=== PATIENT | male | born 2000 | race Caucasian/White ===

== ENCOUNTER 2018-06-07 22:46 | Emergency (ER) | payer OTHER ==
[2018-06-07 22:52] VITALS: BP 136/88
[2018-06-07] MEDS ORDERED: IPRATROPIUM/ALBUTEROL 3 ML DEYVIAL ONE (23:05)
[2018-06-07] MEDS ORDERED: IPRATROPIUM/ALBUTEROL 3 ML DEYVIAL IH ONE ×2 (23:08→23:41)
[2018-06-07] MEDS ORDERED: DEXAMETHASONE 4 MG TAB PO ONE (23:08)
--- NOTE | 2018-06-07 23:10 | EDPHY ---
H & P Smoking Status: Current every day smoker Time Seen by Provider: 06/07/18 23:04 HPI/ROS: CHIEF COMPLAINT: Shortness of breath HISTORY OF PRESENT ILLNESS: Patient is a 18-year-old male here with chief complaint of shortness of breath and fevers and chills starting this afternoon. States he has prior history of asthma but has run out of his albuterol inhaler. He also reports body aches and chills starting today. Denies sore throat. He has had a productive cough. Denies sick contacts. REVIEW OF SYSTEMS: Constitutional: + fever, no chills. Eyes: No discharge. ENT: No sore throat. Cardiovascular: No chest pain, no palpitations. Respiratory: + cough, no shortness of breath. Gastrointestinal: No abdominal pain, no vomiting. Genitourinary: No hematuria. Musculoskeletal: No back pain. Skin: No rashes. Neurological: No headache. (Farzad Fuller) Physical Exam: General Appearance: Alert and no distress. Eyes: Pupils equal and round no injection. Respiratory: Chest is nontender, diffuse wheezing without retractions Cardiac: regular rate and rhythm. Gastrointestinal: Abdomen is soft and nontender, no masses, bowel sounds normal. Musculoskeletal: Neck is supple and nontender. Extremities have full range of motion and are nontender. Skin: No rashes or lesions. (Farzad Fuller) Constitutional: Initial Vital Signs Temperature (C) 37.2 C 06/07/18 22:49 Heart Rate 116 H 06/07/18 22:49 Respiratory Rate 18 06/07/18 22:49 Blood Pressure 136/88 H 06/07/18 22:49 O2 Sat (%) 94 06/07/18 22:49 O2 Delivery Mode Room Air Allergies/Adverse Reactions: Penicillins Allergy (Verified 06/07/18 22:48) Home Medications: Medication Instructions Recorded Albuterol Hfa Anes Only [Proair 2 puffs IH QID #1 mdi 06/07/18 Hfa Icu (*)] Oseltamivir Phosphate [Tamiflu 75 75 mg PO BID 5 Days #10 cap 06/07/18 mg (*)] predniSONE 60 mg PO DAILY 3 Days #9 tab 06/07/18 Medical Decision Making - Diagnostics Imaging Results: Imaging Impressions Chest X-Ray 06/07/18 23:09 IMPRESSION: Normal chest x-ray. ED Course/Re-evaluation: 18-year-old male here with wheezing and subjective fever. Chest x-ray reveals no focal infiltrate this is probably influenza as he does have body aches and cough. This is likely an asthma exacerbation caused by the upper respiratory infection. He was started on Tamiflu, prednisone and albuterol. He feels improved after 2 duo nebs and tender Decadron. (Farzad Fuller) PHYSICIAN DOCUMENTATION: The patient was evaluated and managed by the Physician Spring Assembler Supervisor. My co- signature indicates that I have reviewed this chart and I agree with the findings and plan of care as documented. I am the secondary supervising physician. (Manju Grimm) Differential Diagnosis: ACS, pulmonary embolism, asthma, pneumonia (Farzad Fuller) - Data Points Medications Given: Discontinued Medications Albuterol Sulfate (Proventil Inh Prepack) 1 mdi TAKEHOME EDNOW ONE Stop: 06/07/18 23:45 Last Admin: 06/07/18 23:58 Dose: 1 mdi Albuterol/Ipratropium (Duoneb) 3 ml IH EDNOW ONE Stop: 06/07/18 23:09 Last Admin: 06/07/18 23:14 Dose: 3 ml Albuterol/Ipratropium (Duoneb) 3 ml IH EDNOW ONE Stop: 06/07/18 23:42 Last Admin: 06/07/18 23:44 Dose: 3 ml Dexamethasone (Decadron) 10 mg PO EDNOW ONE Stop: 06/07/18 23:09 Last Admin: 06/07/18 23:14 Dose: 10 mg Departure - Departure Disposition: Home, Routine, Self-Care Clinical Impression: Asthma exacerbation, Viral upper respiratory infection Condition: Good Instructions: Albuterol (By breathing), Asthma (ED) Referrals: NONE *PRIMARY CARE P,. [Primary Care Provider] - As per Instructions [facility] [Clinic] - As per Instructions Prescriptions: Albuterol Hfa Anes Only [Proair Hfa Icu (*)] 2 puffs IH QID #1 mdi Oseltamivir Phosphate [Tamiflu 75 mg (*)] 75 mg PO BID 5 Days #10 cap predniSONE 60 mg PO DAILY 3 Days #9 tab
[2018-06-07] MEDS ORDERED: ALBUTEROL INH PREPACK MDI TAKEHOME ONE (23:44)
== END 2018-06-08 00:10 | disposition home or self-care (01) ==
DX: J45.901 Unspecified asthma with (acute) exacerbation (principal); J06.9 Acute upper respiratory infection, unspecified